=== PATIENT | female | born 1955 | race Caucasian/White ===

== ENCOUNTER 2021-06-14 17:56 | Inpatient (IN) ==
[2021-06-14] MEDS ORDERED: 0.9 % Sodium Chloride 1,000 ML IV ONE ×2 (18:31→20:08)
[2021-06-14] MEDS ORDERED: Ondansetron 4 MG/2 ML VIAL IVP ONE ×2 (18:31→20:29)
[2021-06-14 18:55] LABS: Basophils % 0.1 %; Hematocrit 41.5 % (35.3-44.9); Hemoglobin 13.3 g/dL (11.5-15.4); Immature Granulocytes % 0.2 % (0-4); Lymphocytes # 0.4 K/mcL (0.6-4.6); Lymphocytes % 2.7 %; Mean Corpuscular Hemoglobin 23.2 pg (28.0-33.3); Mean Corpuscular Volume 72.3 fL (83.0-100.0); Mean Platelet Volume 10.2 fL (9.4-12.4); Monocytes # 0.2 K/mcL (0.0-1.3); Monocytes % 1.2 %; Neutrophils # 15.4 K/mcL (1.6-8.9); Platelet Count 222 K/mcL (140-400); Red Blood Count 5.74 M/mcL (3.82-4.97); Red Cell Distribution Width 14.3 % (11.5-14.5); Segmented Neutrophils % 95.8 %; White Blood Count 16.1 K/mcL (4.3-11.1)
[2021-06-14 19:13] LABS: Alanine Aminotransferase 13 Units/L (7-52); Albumin 4.8 g/dL (3.5-5.7); Albumin/Globulin Ratio 1.6 (1.1-2.2); Alkaline Phosphatase 96 Units/L (34-104); Amylase 20 Units/L (29-103); Aspartate Amino Transferase 13 Units/L (13-39); BUN/Creatinine Ratio 22 (6-26); Bilirubin,Total 0.6 mg/dL (0.3-1.0); Blood Urea Nitrogen 13 mg/dL (8-23); Calcium 10.1 mg/dL (8.6-10.3); Carbon Dioxide 24 mEq/L (23-29); Chloride 98 mEq/L (98-107); Glucose 328 mg/dL (70-105); Osmolality,Calculated 293 (280-300); Potassium 3.5 mEq/L (3.5-5.1); Sodium 135 mEq/L (136-145); Total Protein 7.8 g/dL (6.4-8.9); eGFR For African Americans > 60 (> 60); eGFR For Non-African Americans > 60 (> 60)
[2021-06-14] MEDS ORDERED: metroNIDAZOLE 500 MG TABLET PO ONE ×2 (19:37→23:18)
[2021-06-14] MEDS ORDERED: Pantoprazole 40 MG VIAL IVP ONE (20:08)
[2021-06-14] MEDS ORDERED: Metoclopramide 10 MG/2 ML VIAL IVP ONE (20:08)
[2021-06-14 21:28] LABS: Bilirubin,Urine Negative (Negative); Blood,Urine Small (Negative); Clarity,Urine Clear (Clear); Color,Urine Yellow (Yellow); Glucose,Urine (UA) 500 mg/dL (Normal); Ketones,Urine 80 mg/dL (Negative); Leukocyte Esterase,Urine Negative (Negative); Nitrite,Urine Negative (Negative); PH,Urine 6.5 pH Units (5.0-8.0); Protein,Urine 100 mg/dL (Neg-Trace); Specific Gravity,Urine >= 1.030 (1.010-1.025); Urobilinogen,Urine Normal (Normal)
[2021-06-14 21:38] LABS: Bacteria,Urine None Seen per hpf (None-Few); RBC,Urine 0-3 per hpf (0-3); Squamous Epithelial Cell,Urine Few per hpf (None-Few); WBC,Urine 0-3 per hpf (0-3)
[2021-06-14] MEDS ORDERED: *HR* Dextrose 50 % in Water (Syg) 50 ML SYRINGE IVP PRN ×2 (22:41→23:18)
[2021-06-14] MEDS ORDERED: D5% in Water 1,000 ML IVC PRN ×2 (22:41→23:18)
[2021-06-14] MEDS ORDERED: Dextrose Gel 15 GM/37.5 ML TUBE PO PRN ×4 (22:41→23:18)
[2021-06-14] MEDS ORDERED: Ipratropium/Albuterol Neb 3 ML IH PRN (23:18)
[2021-06-14] MEDS ORDERED: Ondansetron 4 MG/2 ML VIAL IVP PRN (23:18)
[2021-06-14] MEDS ORDERED: Naloxone 0.4 MG/ML INJ IVP PRN (23:18)
[2021-06-14] MEDS ORDERED: 0.9 % Sodium Chloride 1,000 ML IVC SCH (23:18)
[2021-06-14] MEDS ORDERED: Insulin DETEMIR 100 UNIT/ML per UNIT SUBQ ONE (23:45)
[2021-06-15] MEDS: Ondansetron 4 MG/2 ML VIAL IVP PRN ×2 (02:22→08:23)
[2021-06-15 07:06] LABS: Basophils % 0.1 %; Hematocrit 39.8 % (35.3-44.9); Hemoglobin 12.6 g/dL (11.5-15.4); Immature Granulocytes % 0.5 % (0-4); Lymphocytes # 1.2 K/mcL (0.6-4.6); Lymphocytes % 8.4 %; Mean Corpuscular HGB Conc 31.7 g/dL (31.6-35.5); Mean Corpuscular Hemoglobin 23.1 pg (28.0-33.3); Mean Corpuscular Volume 72.9 fL (83.0-100.0); Mean Platelet Volume 10.3 fL (9.4-12.4); Monocytes % 3.7 %; Neutrophils # 12.8 K/mcL (1.6-8.9); Platelet Count 224 K/mcL (140-400); Red Blood Count 5.46 M/mcL (3.82-4.97); Red Cell Distribution Width 14.5 % (11.5-14.5); Segmented Neutrophils % 87.3 %; White Blood Count 14.7 K/mcL (4.3-11.1)
[2021-06-15 07:08] LABS: Monocytes # 0.5 K/mcL (0.0-1.3)
[2021-06-15 07:58] LABS: BUN/Creatinine Ratio 19 (6-26); Blood Urea Nitrogen 10 mg/dL (8-23); Carbon Dioxide 22 mEq/L (23-29); Chloride 101 mEq/L (98-107); Glucose 212 mg/dL (70-105); Osmolality,Calculated 289 (280-300); Potassium 3.2 mEq/L (3.5-5.1); Sodium 137 mEq/L (136-145); eGFR For African Americans > 60 (> 60); eGFR For Non-African Americans > 60 (> 60)
[2021-06-15] MEDS ORDERED: hydroCHLOROthiazide 25 MG TABLET PO SCH (09:00)
[2021-06-15] MEDS ORDERED: *HR* GlipiZIDE XL (24 HR) 10 MG TABLET PO SCH (09:00)
[2021-06-15] MEDS: amLODIPine 5 MG TABLET PO SCH (09:55)
[2021-06-15] MEDS: Insulin DETEMIR 100 UNIT/ML X5UNITS SUBQ SCH ×2 (09:56→20:26)
[2021-06-15] MEDS: *HR* Promethazine 25 MG/ML VIAL IM PRN (11:46)
[2021-06-15] MEDS: MetroNIDAZOLE 500 MG/100 ML 500 MG/100 ML BAG IVPB SCH ×2 (11:56→20:21)
[2021-06-15] MEDS: 0.9 % Sodium Chloride 1,000 ML IVC SCH ×2 (11:57→20:24)
[2021-06-15] MEDS: Morphine Sulfate 2 MG/ML SYRINGE IVP PRN (14:29)
[2021-06-15] MEDS ORDERED: Ringers Solution, Lactated 500 ML IVC ONE (15:25)
[2021-06-15] MEDS: *HR* OxyCODONE/APAP 7.5/325 TABLET PO PRN (19:07)
[2021-06-15] MEDS: rOPINIRole 0.25 MG TABLET PO SCH (20:26)
[2021-06-15] MEDS: Melatonin 3 MG TABLET PO PRN (20:26)
[2021-06-15] MEDS ORDERED: Insulin DETEMIR 100 UNIT/ML X5UNITS SUBQ SCH ×2 (21:00→23:00)
[2021-06-15] MEDS ORDERED: Insulin LISPRO 300 UNITS/3 ML VIAL SUBQ SCH (23:00)
[2021-06-16] MEDS: Insulin LISPRO 300 UNITS/3 ML VIAL SUBQ SCH ×4 (00:56→18:05)
[2021-06-16] MEDS: MetroNIDAZOLE 500 MG/100 ML 500 MG/100 ML BAG IVPB SCH ×3 (03:43→18:00)
[2021-06-16] MEDS: Morphine Sulfate 2 MG/ML SYRINGE IVP PRN (03:43)
[2021-06-16] MEDS: *HR* Promethazine 25 MG/ML VIAL IM PRN (04:48)
[2021-06-16 05:10] LABS: Hematocrit 42.3 % (35.3-44.9); Hemoglobin 13.2 g/dL (11.5-15.4); Mean Corpuscular HGB Conc 31.2 g/dL (31.6-35.5); Mean Corpuscular Hemoglobin 23.1 pg (28.0-33.3); Mean Platelet Volume 10.5 fL (9.4-12.4); Platelet Count 241 K/mcL (140-400); Red Blood Count 5.72 M/mcL (3.82-4.97); Red Cell Distribution Width 14.7 % (11.5-14.5); White Blood Count 11.7 K/mcL (4.3-11.1)
[2021-06-16 05:21] LABS: BUN/Creatinine Ratio 26 (6-26); Blood Urea Nitrogen 16 mg/dL (8-23); Calcium 9.1 mg/dL (8.6-10.3); Carbon Dioxide 25 mEq/L (23-29); Chloride 107 mEq/L (98-107); Glucose 90 mg/dL (70-105); Osmolality,Calculated 293 (280-300); Potassium 3.5 mEq/L (3.5-5.1); Sodium 141 mEq/L (136-145); eGFR For African Americans > 60 (> 60); eGFR For Non-African Americans > 60 (> 60)
[2021-06-16] MEDS: Ondansetron 4 MG/2 ML VIAL IVP PRN ×3 (06:24→18:12)
[2021-06-16] MEDS: Insulin DETEMIR 100 UNIT/ML X5UNITS SUBQ SCH ×2 (08:49→21:07)
[2021-06-16] MEDS: amLODIPine 5 MG TABLET PO SCH (08:51)
[2021-06-16] MEDS: 0.9 % Sodium Chloride 1,000 ML IVC SCH ×3 (11:31→22:09)
[2021-06-16] MEDS: *HR* OxyCODONE/APAP 7.5/325 TABLET PO PRN ×2 (11:41→18:00)
[2021-06-16] MEDS: rOPINIRole 0.25 MG TABLET PO SCH (21:11)
[2021-06-16] MEDS: Melatonin 3 MG TABLET PO PRN (21:11)
[2021-06-17] MEDS: Ondansetron 4 MG/2 ML VIAL IVP PRN (00:15)
[2021-06-17] MEDS: *HR* OxyCODONE/APAP 7.5/325 TABLET PO PRN ×4 (00:15→19:31)
[2021-06-17] MEDS: Insulin LISPRO 300 UNITS/3 ML VIAL SUBQ SCH ×4 (00:16→20:16)
[2021-06-17] MEDS: MetroNIDAZOLE 500 MG/100 ML 500 MG/100 ML BAG IVPB SCH ×3 (03:11→19:32)
[2021-06-17] MEDS: Morphine Sulfate 2 MG/ML SYRINGE IVP PRN (03:19)
[2021-06-17 06:07] LABS: Basophils # 0.1 K/mcL (0.0-0.2); Basophils % 0.6 %; Eosinophils # 0.1 K/mcL (0.0-0.6); Eosinophils % 1.5 %; Hematocrit 37.3 % (35.3-44.9); Hemoglobin 11.8 g/dL (11.5-15.4); Immature Granulocytes % 0.2 % (0-4); Lymphocytes # 2.5 K/mcL (0.6-4.6); Lymphocytes % 30.1 %; Mean Corpuscular HGB Conc 31.6 g/dL (31.6-35.5); Mean Corpuscular Hemoglobin 23.3 pg (28.0-33.3); Mean Corpuscular Volume 73.6 fL (83.0-100.0); Mean Platelet Volume 9.9 fL (9.4-12.4); Monocytes # 0.5 K/mcL (0.0-1.3); Monocytes % 5.8 %; Neutrophils # 5.1 K/mcL (1.6-8.9); Platelet Count 196 K/mcL (140-400); Red Blood Count 5.07 M/mcL (3.82-4.97); Red Cell Distribution Width 14.6 % (11.5-14.5); Segmented Neutrophils % 61.8 %; White Blood Count 8.2 K/mcL (4.3-11.1)
[2021-06-17 06:20] LABS: BUN/Creatinine Ratio 37 (6-26); Blood Urea Nitrogen 24 mg/dL (8-23); Calcium 8.4 mg/dL (8.6-10.3); Carbon Dioxide 22 mEq/L (23-29); Chloride 107 mEq/L (98-107); Glucose 141 mg/dL (70-105); Osmolality,Calculated 290 (280-300); Potassium 2.9 mEq/L (3.5-5.1); Sodium 137 mEq/L (136-145); eGFR For African Americans > 60 (> 60); eGFR For Non-African Americans > 60 (> 60)
[2021-06-17] MEDS: 0.9 % Sodium Chloride 1,000 ML IVC SCH ×2 (07:04→16:25)
[2021-06-17] MEDS: Insulin DETEMIR 100 UNIT/ML X5UNITS SUBQ SCH ×2 (10:03→20:16)
[2021-06-17] MEDS: amLODIPine 5 MG TABLET PO SCH (10:03)
[2021-06-17] MEDS ORDERED: Acetaminophen 325 MG TABLET PO PRN (15:33)
[2021-06-17] MEDS: rOPINIRole 0.25 MG TABLET PO SCH (19:31)
[2021-06-17 19:40] LABS: Adenovirus F 40/41 PCR Not detected (Not detect); Astrovirus PCR Not detected (Not detect); C.difficile Toxin A/B Gene PCR DETECTED (Not detect); Campylobacter by PCR DETECTED (Not detect); Cryptosporidium by PCR Not detected (Not detect); Cyclospora cayetanensis PCR Not detected (Not detect); E. coli O157 by PCR Not detected (Not detect); Entamoeba histolytica PCR Not detected (Not detect); Enteroaggregative E.coli(EAEC) Not detected (Not detect); Enteropathogenic E.coli(EPEC) Not detected (Not detect); Enterotoxigenic E.coli (ETEC) Not detected (Not detect); Giardia lamblia PCR Not detected (Not detect); Norovirus GI/GII PCR Not detected (Not detect); Plesiomonas shigelloides PCR Not detected (Not detect); Rotavirus A PCR Not detected (Not detect); Salmonella PCR Not detected (Not detect); Sapovirus PCR Not detected (Not detect); Shig/EnteroinvasiveE coli EIEC Not detected (Not detect); Shigalike tox-prod E coli STEC Not detected (Not detect); Vibrio PCR Not detected (Not detect); Vibrio cholerae PCR Not detected (Not detect); Yersinia enterocolitica PCR Not detected (Not detect)
[2021-06-17] MEDS: Melatonin 3 MG TABLET PO PRN (21:18)
[2021-06-17] MEDS ORDERED: Azithromycin 250 MG TABLET PO ONE (21:47)
[2021-06-18] MEDS: Insulin LISPRO 300 UNITS/3 ML VIAL SUBQ SCH ×3 (00:18→14:07)
[2021-06-18] MEDS: Ondansetron 4 MG/2 ML VIAL IVP PRN ×2 (00:18→07:32)
[2021-06-18] MEDS: MetroNIDAZOLE 500 MG/100 ML 500 MG/100 ML BAG IVPB SCH ×2 (03:40→13:04)
[2021-06-18] MEDS: *HR* OxyCODONE/APAP 7.5/325 TABLET PO PRN (03:50)
[2021-06-18] MEDS: Vancomycin Oral Soln 125 MG/2.5 ML UDC PO SCH ×3 (07:31→17:10)
[2021-06-18] MEDS: amLODIPine 5 MG TABLET PO SCH (07:32)
[2021-06-18] MEDS: Morphine Sulfate 2 MG/ML SYRINGE IVP PRN (07:33)
[2021-06-18 11:35] VITALS: BP 121/64; PULSE 71; RESP 18; TEMP 98.7; O2SAT 96
[2021-06-18] MEDS: Insulin DETEMIR 100 UNIT/ML X5UNITS SUBQ SCH (11:39)
[2021-06-18] MEDS: 0.9 % Sodium Chloride 1,000 ML IVC SCH (12:19)
[2021-06-18] MEDS ORDERED: Azithromycin 250 MG TABLET PO SCH (22:00)
== END 2021-06-18 17:45 | disposition home or self-care (01) | DRG 392 ==
LOC: INPGRE 17:56 → EMEROOGRE 17:56 → INPGRE 23:28
PROVIDERS: ADMIT Internal Medicine; ATTEND Internal Medicine